=== PATIENT | male | born 1975 | race Caucasian/White ===

== ENCOUNTER 2024-06-20 15:02 | Inpatient (IN) | payer OTHER ==
[~2024-06-20] VITALS: Ht 177.8 cm; Wt 111.0 kg
[2024-06-20] MEDS ORDERED: 0.9% SODIUM CHLORIDE 10 ML SYRINGE IVP PRN (16:15)
[2024-06-20] MEDS: SODIUM CHLORIDE 0.9% 1,000 ML IV ONE (16:50)
[2024-06-20] MEDS: CEFEPIME HCL 2 GM in DEXTROSE 5%-WATER 50 ML IV ONE (16:50)
[2024-06-20] MEDS: MORPHINE SULFATE 2 MG/ML SYRINGE IVP ONE (16:50)
[2024-06-20] MEDS: ACETAMINOPHEN 500 MG TABLET PO ONE (16:50)
[2024-06-20 16:54] LABS: BASOPHILS % (AUTO) 0.5 % (0.0-2.0); HEMATOCRIT 41.3 % (41-53); HEMOGLOBIN 14.2 g/dL (13.5-17.5); LYMPHOCYTES # (AUTO) 1.5 K/uL (1.0-4.8); MEAN CORPUSCULAR HGB CONC 34.3 G/dL (31.0-37.0); MEAN CORPUSCULAR VOLUME 91 fL (80-100); MONOCYTES % (AUTO) 9.3 % (2.0-9.0); NEUTROPHILS # (AUTO) 7.8 K/uL (1.8-7.7); NEUTROPHILS % (AUTO) 75.2 % (40.0-70.0); PLATELET COUNT (AUTO) 338 K/uL (150-450); RED BLOOD CELL COUNT(AUTO) 4.56 MIL/uL (4.50-5.90); RED CELL DISTRIBUTION WIDTH 13.8 % (11.5-14.5); WHITE BLOOD COUNT (AUTO) 10.4 K/uL (4.5-11.0)
[2024-06-20 17:07] LABS: ANION GAP 5 mmol/L (8-16); CALCIUM, TOTAL 8.7 mg/dL (8.8-10.5); CARBON DIOXIDE 29 mmol/L (22-29); CHLORIDE 98 mmol/L (98-107); CREATININE 0.82 mg/dL (0.60-1.30); GLOMERULAR FILTR. RATE CALC > 60 mL/min (>60); GLUCOSE,RANDOM 265 mg/dL (70-110); POTASSIUM 4.2 mmol/L (3.5-5.1); SODIUM SERUM 132 mmol/L (136-145); UREA NITROGEN, BLOOD 15 mg/dL (7-18)
[2024-06-20 17:13] LABS: LACTIC ACID 1.1 mmol/L (0.4-2.0)
[2024-06-20 17:14] LABS: ERYTHROCYTE SEDIMENTATION RATE 49 MM/HR (0-15)
[2024-06-20 17:17] LABS: B-TYPE NATRIURETIC PEPTIDE 8 pg/mL (0-100)
[2024-06-20 17:20] LABS: ALANINE AMINOTRANSFERASE 23 U/L (12-78); ALBUMIN 2.8 g/dL (3.4-5.0); ALKALINE PHOSPHATASE 154 U/L (46-116); ASPARTATE AMINOTRANSFERASE 13 U/L (15-37); BILIRUBIN,TOTAL 0.6 mg/dL (0.1-1.0); CREATINE KINASE, TOTAL ONLY 31 U/L (39-308); TOTAL PROTEIN, SERUM 7.7 g/dL (6.4-8.2)
[2024-06-20 17:32] LABS: TROPONIN I-HIGH SENSITIVITY Less Than 4 ng/L (<76)
[2024-06-20] MEDS: VANCOMYCIN 1.25 GM/WATER(PEG) 250 ML IV ONE (17:38)
[2024-06-20] MEDS ORDERED: DEXTROSE 50%-WATER 25 GM/50 ML SYRINGE IVP PRN (18:30)
[2024-06-20] MEDS ORDERED: ONDANSETRON HCL 4 MG/2 ML VIAL IVP PRN (18:30)
[2024-06-20] MEDS: RINGERS LACTATED IV ONE (18:42)
[2024-06-20 20:49] LABS: APPEARANCE,URINE CLEAR (CLEAR); BILIRUBIN,URINE NEGATIVE (NEGATIVE); COLOR,URINE YELLOW (YELLOW); GLUCOSE, URINE (UA) >=1000 mg/dL (NEGATIVE); KETONES,URINE NEGATIVE (NEGATIVE); LEUKOCYTE ESTERASE ,URINE NEGATIVE (NEGATIVE); NITRATE,URINE NEGATIVE (NEGATIVE); OCCULT BLOOD,URINE NEGATIVE (NEGATIVE); PH,URINE 6.5 (5.0-8.0); PROTEIN,URINE 100-200,SEE CONFIRM mg/dL (NEGATIVE); SPECIFIC GRAVITIY, URINE 1.035 (1.003-1.030)
[2024-06-20] MEDS: DOCUSATE SODIUM 100 MG CAPSULE PO SCH (21:00)
[2024-06-20 21:13] LABS: BACTERIA,URINE None Seen /HPF (None Seen); RBC,URINE 0-2 /HPF (0-2); SULFOSALICYLIC ACID,URINE 2+ (Negative); WBC,URINE 0-2 /HPF (0-5)
[2024-06-20 21:25] VITALS: BP 137/75; PULSE 95; RESP 19; TEMP 97.7
[2024-06-20] MEDS: INSULIN GLARGINE,HUM.REC.ANLOG 100 UNITS/ML SQ SCH (21:47)
[2024-06-20 22:15] LABS: GLUCOMETER DEV NAME(LOC) 6N.2B; GLUCOSE,POINT OF CARE 98 MG/DL (70-110)
[2024-06-20] MEDS ORDERED: SODIUM CHLORIDE 0.9% 500 ML IV ONE (23:42)
[2024-06-20] MEDS: PIPERACILLIN/TAZO 3.375 GM/D5W 50 ML IV SCH (23:51)
[2024-06-20] MEDS: RINGERS SOLUTION,LACTATED 1,000 ML IV ONE (23:51)
[2024-06-20] MEDS: HEPARIN SODIUM,PORCINE 5,000 UNITS/ML VIAL SQ SCH (23:52)
[2024-06-21] MEDS: VANCOMYCIN 1.5 GM/WATER(PEG) 300 ML IV ONE (01:11)
[2024-06-21 05:00] VITALS: BP 133/83; PULSE 99; RESP 19; TEMP 98.9
[2024-06-21 07:00] LABS: GLUCOMETER DEV NAME(LOC) 6N.2B; GLUCOSE,POINT OF CARE 150 MG/DL (70-110)
[2024-06-21 07:15] LABS: BASOPHILS % (AUTO) 0.3 % (0.0-2.0); EOSINOPHILS % (AUTO) 0.6 % (1.0-6.0); HEMATOCRIT 37.3 % (41-53); HEMOGLOBIN 12.8 g/dL (13.5-17.5); LYMPHOCYTES # (AUTO) 1.4 K/uL (1.0-4.8); MEAN CORPUSCULAR HEMOGLOBIN 31.2 pg (26.0-34.0); MEAN CORPUSCULAR HGB CONC 34.2 G/dL (31.0-37.0); MEAN CORPUSCULAR VOLUME 91 fL (80-100); MONOCYTES # (AUTO) 0.9 K/uL (0.1-1.0); MONOCYTES % (AUTO) 9.1 % (2.0-9.0); NEUTROPHILS # (AUTO) 7.4 K/uL (1.8-7.7); PLATELET COUNT (AUTO) 312 K/uL (150-450); RED CELL DISTRIBUTION WIDTH 13.5 % (11.5-14.5); WHITE BLOOD COUNT (AUTO) 9.8 K/uL (4.5-11.0)
[2024-06-21 07:31] LABS: ANION GAP 6 mmol/L (8-16); CALCIUM, TOTAL 8.4 mg/dL (8.8-10.5); CARBON DIOXIDE 29 mmol/L (22-29); CHLORIDE 98 mmol/L (98-107); CREATININE 0.66 mg/dL (0.60-1.30); GLOMERULAR FILTR. RATE CALC > 60 mL/min (>60); GLUCOSE,RANDOM 130 mg/dL (70-110); POTASSIUM 3.8 mmol/L (3.5-5.1); SODIUM SERUM 133 mmol/L (136-145); UREA NITROGEN, BLOOD 8 mg/dL (7-18)
[2024-06-21 08:30] VITALS: BP 119/73; PULSE 96; RESP 19; TEMP 99.2
[2024-06-21] MEDS: VANCOMYCIN 1.25 GM/WATER(PEG) 250 ML IV SCH (08:40)
[2024-06-21] MEDS: INSULIN LISPRO 100 UNITS/ML SQ PRN (11:35)
[2024-06-21 13:51] LABS: GLUCOMETER DEV NAME(LOC) 6N.2B; GLUCOSE,POINT OF CARE 285 MG/DL (70-110)
[2024-06-21] MEDS: GABAPENTIN 100 MG CAPSULE PO ONE (18:36)
[2024-06-21 20:01] VITALS: BP 124/71; PULSE 96; RESP 19; TEMP 98.9
[2024-06-21] MEDS ORDERED: MELATONIN 3 MG TABLET PO PRN (21:00)
[2024-06-21] MEDS: GABAPENTIN 100 MG CAPSULE PO SCH (21:20)
[2024-06-21 21:26] LABS: GLUCOMETER DEV NAME(LOC) 6N.2B; GLUCOSE,POINT OF CARE 349 MG/DL (70-110)
[2024-06-22 02:06] LABS: GLUCOMETER DEV NAME(LOC) 6S.2; GLUCOSE,POINT OF CARE 314 MG/DL (70-110)
[2024-06-22 04:49] VITALS: BP 121/74; PULSE 86; RESP 20; TEMP 98.6
[2024-06-22 07:00] LABS: BASOPHILS % (AUTO) 0.4 % (0.0-2.0); EOSINOPHILS % (AUTO) 1.4 % (1.0-6.0); HEMATOCRIT 37.9 % (41-53); LYMPHOCYTES # (AUTO) 1.6 K/uL (1.0-4.8); LYMPHOCYTES % (AUTO) 18.9 % (22.0-44.0); MEAN CORPUSCULAR HEMOGLOBIN 31.1 pg (26.0-34.0); MEAN CORPUSCULAR HGB CONC 34.2 G/dL (31.0-37.0); MEAN CORPUSCULAR VOLUME 91 fL (80-100); MONOCYTES # (AUTO) 1.1 K/uL (0.1-1.0); MONOCYTES % (AUTO) 13.4 % (2.0-9.0); NEUTROPHILS # (AUTO) 5.5 K/uL (1.8-7.7); NEUTROPHILS % (AUTO) 65.9 % (40.0-70.0); PLATELET COUNT (AUTO) 332 K/uL (150-450); RED BLOOD CELL COUNT(AUTO) 4.17 MIL/uL (4.50-5.90); RED CELL DISTRIBUTION WIDTH 13.6 % (11.5-14.5); WHITE BLOOD COUNT (AUTO) 8.4 K/uL (4.5-11.0)
[2024-06-22 07:05] LABS: GLUCOMETER DEV NAME(LOC) 6S.2; GLUCOSE,POINT OF CARE 196 MG/DL (70-110)
[2024-06-22 07:17] LABS: ANION GAP 3 mmol/L (8-16); CALCIUM, TOTAL 8.4 mg/dL (8.8-10.5); CARBON DIOXIDE 32 mmol/L (22-29); CHLORIDE 100 mmol/L (98-107); CREATININE 0.67 mg/dL (0.60-1.30); GLOMERULAR FILTR. RATE CALC > 60 mL/min (>60); GLUCOSE,RANDOM 199 mg/dL (70-110); POTASSIUM 3.7 mmol/L (3.5-5.1); SODIUM SERUM 135 mmol/L (136-145); UREA NITROGEN, BLOOD 12 mg/dL (7-18); VANCOMYCIN,RANDOM 6.4 mcg/mL (25.0-50.0)
[2024-06-22 08:36] VITALS: BP 121/74; PULSE 85; RESP 18; TEMP 98.5
[2024-06-22 12:50] LABS: GLUCOMETER DEV NAME(LOC) 6S.2; GLUCOSE,POINT OF CARE 160 MG/DL (70-110)
[2024-06-22 18:06] LABS: GLUCOMETER DEV NAME(LOC) 6S.2; GLUCOSE,POINT OF CARE 245 MG/DL (70-110)
[2024-06-22] MEDS ORDERED: SODIUM CHLORIDE 0.9% 500 ML IV ONE (18:23)
[2024-06-22 20:17] VITALS: BP 126/73; PULSE 93; RESP 20; TEMP 98.9
[2024-06-23 04:11] VITALS: BP 120/74; PULSE 82; RESP 18; TEMP 98.2
[2024-06-23] MEDS ORDERED: PROPOFOL 1% ISO-OSM 1000 MG/100 ML BOTTLE ONE (05:50)
[2024-06-23] MEDS ORDERED: ONDANSETRON HCL 4 MG/2 ML VIAL ONE (05:50)
[2024-06-23] MEDS ORDERED: MIDAZOLAM HCL 2 MG/2 ML VIAL ONE (05:50)
[2024-06-23] MEDS ORDERED: LIDOCAINE/PF 2% 5 ML VIAL ONE (05:50)
[2024-06-23] MEDS ORDERED: FentaNYL CITRATE PF 100 MCG/2 ML VIAL ONE (05:50)
[2024-06-23] MEDS ORDERED: PROPOFOL 1% 20 ML VIAL IVP ONE (05:50)
[2024-06-23] MEDS: ETHYL ALCOHOL 62% ANTISEPTIC NASAL SANITIZER 0.6 ML AMPUL NASAL ONE (06:00)
[2024-06-23] MEDS: RINGERS SOLUTION,LACTATED 1,000 ML IV ONE (06:05)
[2024-06-23] MEDS ORDERED: RINGERS SOLUTION,LACTATED 0 ML IV ONE (06:23)
[2024-06-23] MEDS ORDERED: SODIUM CL IRRIG SOLN BAG 3,000 ML IRRIG ONE (06:32)
[2024-06-23] MEDS ORDERED: LIDOCAINE/PF 1% 30 ML VIAL ONE (06:33)
[2024-06-23] MEDS ORDERED: VANCOMYCIN HCL 1 GM VIAL ONE (06:34)
[2024-06-23 06:50] LABS: GLUCOMETER DEV NAME(LOC) 6S.2; GLUCOSE,POINT OF CARE 306 MG/DL (70-110)
[2024-06-23 06:50] LABS: GLUCOMETER DEV NAME(LOC) 6N.2B; GLUCOSE,POINT OF CARE 277 MG/DL (70-110)
[2024-06-23 07:07] LABS: BASOPHILS % (AUTO) 0.5 % (0.0-2.0); EOSINOPHILS % (AUTO) 1.9 % (1.0-6.0); HEMATOCRIT 38.5 % (41-53); HEMOGLOBIN 13.3 g/dL (13.5-17.5); LYMPHOCYTES # (AUTO) 1.7 K/uL (1.0-4.8); LYMPHOCYTES % (AUTO) 21.7 % (22.0-44.0); MEAN CORPUSCULAR HEMOGLOBIN 31.4 pg (26.0-34.0); MEAN CORPUSCULAR HGB CONC 34.4 G/dL (31.0-37.0); MEAN CORPUSCULAR VOLUME 91 fL (80-100); MONOCYTES # (AUTO) 0.8 K/uL (0.1-1.0); MONOCYTES % (AUTO) 10.4 % (2.0-9.0); NEUTROPHILS % (AUTO) 65.5 % (40.0-70.0); PLATELET COUNT (AUTO) 367 K/uL (150-450); RED BLOOD CELL COUNT(AUTO) 4.22 MIL/uL (4.50-5.90); RED CELL DISTRIBUTION WIDTH 13.6 % (11.5-14.5); WHITE BLOOD COUNT (AUTO) 7.7 K/uL (4.5-11.0)
[2024-06-23 07:21] LABS: ANION GAP 3 mmol/L (8-16); CALCIUM, TOTAL 8.6 mg/dL (8.8-10.5); CARBON DIOXIDE 33 mmol/L (22-29); CHLORIDE 98 mmol/L (98-107); CREATININE 0.83 mg/dL (0.60-1.30); GLOMERULAR FILTR. RATE CALC > 60 mL/min (>60); GLUCOSE,RANDOM 261 mg/dL (70-110); POTASSIUM 3.7 mmol/L (3.5-5.1); SODIUM SERUM 134 mmol/L (136-145); UREA NITROGEN, BLOOD 11 mg/dL (7-18); VANCOMYCIN,RANDOM 15.6 mcg/mL (25.0-50.0)
[2024-06-23] MEDS ORDERED: FentaNYL CITRATE PF 100 MCG/2 ML VIAL IVP PRN (08:15)
[2024-06-23] MEDS: BUPIVACAINE HCL/PF 0.5% 30 ML VIAL ONE (08:20)
[2024-06-23 09:26] VITALS: BP 128/80; PULSE 72; RESP 20; TEMP 97.7
[2024-06-23] MEDS: MORPHINE SULFATE 2 MG/ML SYRINGE IVP PRN (15:26)
[2024-06-23 17:09] VITALS: BP 124/82; PULSE 86; RESP 18; TEMP 98.3
[2024-06-23] MEDS ORDERED: SODIUM CHLORIDE 0.9% 500 ML IV ONE (17:12)
[2024-06-23 17:46] LABS: GLUCOMETER DEV NAME(LOC) 6S.2; GLUCOSE,POINT OF CARE 257 MG/DL (70-110)
[2024-06-23 17:46] LABS: GLUCOMETER DEV NAME(LOC) 6S.2; GLUCOSE,POINT OF CARE 164 MG/DL (70-110)
[2024-06-23 20:14] VITALS: BP 129/81; PULSE 81; RESP 18; TEMP 99.4
[2024-06-24 04:00] VITALS: BP 103/60; PULSE 80; RESP 18; TEMP 98.5
[2024-06-24 06:40] LABS: ANION GAP 5 mmol/L (8-16); CARBON DIOXIDE 31 mmol/L (22-29); CHLORIDE 98 mmol/L (98-107); CREATININE 0.74 mg/dL (0.60-1.30); GLOMERULAR FILTR. RATE CALC > 60 mL/min (>60); GLUCOSE,RANDOM 129 mg/dL (70-110); POTASSIUM 3.8 mmol/L (3.5-5.1); SODIUM SERUM 134 mmol/L (136-145); UREA NITROGEN, BLOOD 14 mg/dL (7-18)
[2024-06-24 07:55] VITALS: BP 116/74; PULSE 81; RESP 18; TEMP 98.7
[2024-06-24] MEDS: OXYGEN THERAPY IH SCH (08:00)
[2024-06-24 08:01] LABS: GLUCOMETER DEV NAME(LOC) 6N.2B; GLUCOSE,POINT OF CARE 152 MG/DL (70-110)
[2024-06-24 08:01] LABS: GLUCOMETER DEV NAME(LOC) 6N.2B; GLUCOSE,POINT OF CARE 305 MG/DL (70-110)
[2024-06-24 12:55] LABS: GLUCOMETER DEV NAME(LOC) 6N.2B; GLUCOSE,POINT OF CARE 189 MG/DL (70-110)
[2024-06-24] MEDS: LEVOFLOXACIN 750 MG TABLET PO ONE (14:20)
[2024-06-24] MEDS ORDERED: GABA-1216 PO (14:31)
[2024-06-24] MEDS ORDERED: INSLAN SQ (14:32)
[2024-06-24] MEDS ORDERED: LEVO750T68 PO (14:33)
[2024-06-24] MEDS: ACETAMINOPHEN 325 MG TABLET PO PRN (17:25)
[2024-06-24 21:25] LABS: GLUCOMETER DEV NAME(LOC) 6S.2; GLUCOSE,POINT OF CARE 225 MG/DL (70-110)
== END 2024-06-24 19:50 | DRG 256 ==
LOC: EMS 15:02 → EDH 19:56 → 6S 21:14
PROVIDERS: ADMIT Internal Medicine; ATTEND Internal Medicine
PROC: 0Y6U0Z0 Detachment at Left 3rd Toe, Complete, Open Approach (ICD-10-PCS; principal; 2024-06-22)
DX: E11.52 Type 2 diabetes mellitus with diabetic peripheral angiopathy with gangrene (principal); L03.116 Cellulitis of left lower limb; R65.10 Systemic inflammatory response syndrome (SIRS) of non-infectious origin without acute organ dysfunction; E11.65 Type 2 diabetes mellitus with hyperglycemia; E11.40 Type 2 diabetes mellitus with diabetic neuropathy, unspecified; E66.9 Obesity, unspecified; Z68.35 Body mass index [BMI] 35.0-35.9, adult; Z87.891 Personal history of nicotine dependence; I73.9 Peripheral vascular disease, unspecified
CPT/HCPCS: 80048; 80053; 80202; 81001; 81002; 82550; 82962; 83605; 83735; 83880; 84145; 84484; 85025; 85651; 86140; 87040; 87070; 87101; 87205; 88305; 88311; 99285; J0692; J1644; J1815; J2250; J2270; J2405; J2543; J2704; J3010; J3370; J3490; J7030; J7040; J7060; J7120; 36415-L1; 36415-TC